=== PATIENT | male | born 1995 | race Caucasian/White ===

== ENCOUNTER 2017-03-28 21:25 | Emergency (ER) | payer SELFPAY ==
[~2017-03-28] VITALS: Ht 162.6 cm; Wt 65.9 kg
[2017-03-28 21:28] VITALS: Ht 162.6 cm; Wt 65.9 kg
--- NOTE | 2017-03-28 23:10 | RADRPT ---
PROCEDURE: CT Brain without contrast. CLINICAL INDICATION: Ethanol complication. Trauma. TECHNIQUE: A multiplanar CT of the brain was performed on a CT scanner utilizing axial imaging fro m the skull base through the vertex without . The CTDIvol is 43.58 mGy and the DLP is 720.23 mGycm . One or more of the following dose reduction techniques were utilized: Automated exposure control , adjustment of the mA and/or kV according to patient size, use of iterative reconstruction techniqu e. DICOM images are available. COMPARISON: None FINDINGS: No evidence of intracranial hemorrhage or abnormal extra-axial fluid collection. 5 mm left anterior parasagittal frontal lobe calcification compatible sequelae of chronic neurocysticercosis. The brain parenchyma is normal in attenuation and morphology with preservation of mccabe white differe ntiation Age appropriate size of the ventricles and subarachnoid spaces. The posterior fossa contents, brainstem, craniocervical junction, orbits, pituitary axis, paranasal sinuses, mastoid air cells, and calvarium are unremarkable. IMPRESSION: 1. No intracranial hemorrhage or acute intracranial abnormality . MRI may be considered for further evaluation as clinically warranted. 2. 5 mm left anterior parasagittal frontal lobe calcification compatible with sequelae of chronic neurocysticercosis. RPTAT:AAJJ Physician Magdalene Date Time Electronically viewed and signed by Physician Magdalene on 03/28/2017 23:09 VINCE/
[2017-03-29] MEDS ORDERED: BISM262O23 PO ×2 (02:26)
--- NOTE | 2017-03-29 04:16 | ERD ---
ER Documentation Chief Complaint Chief Complaint BIBA RA100,ETOH intoxication HPI 21-year-old male with acute alcohol intoxication brought in by rescue. Patient does drink alcohol. No evidence of trauma. Patient provides very little history given his alcoholic state ROS All systems reviewed and are negative except as per history of present illness. Medications Home Meds Reported Medications Bismuth Subsalicylate* (Pepto-Bismol*) 262 Mg/15 Ml Oral.susp, 15 ML PO Q6H Y for GASTROINTESTINAL UPSET, ML 03/29/17 Discontinued Reported Medications Bismuth Subsalicylate* (Pepto-Bismol*) 262 Mg/15 Ml Oral.susp, 30 ML PO, ML 03/29/17 Allergies Allergies: Coded Allergies: No Known Allergy (Unverified , 03/29/17) PMhx/Soc Medical and Surgical Hx: Unable to obtain Hx Alcohol Use: Yes Smoking Status: Unknown if ever smoked Physical Exam Vitals Vital Signs Date Time Temp Pulse Resp B/P Pulse Ox O2 Delivery O2 Flow Rate FiO2 03/28/17 21:28 97.6 103 18 133/77 96 Physical Exam Const: [] Head: Atraumatic Eyes: Normal Conjunctiva ENT: Normal External Ears, Nose and Mouth. Neck: Full range of motion..~ No meningismus. Resp: Clear to auscultation bilaterally Cardio: Regular rate and rhythm, no murmurs Abd: Soft, non tender, non distended. Normal bowel sounds Skin: No petechiae or rashes Back: No midline or flank tenderness Ext: No cyanosis, or edema Neur: Awake and alert Psych: Normal Mood and Affect Procedures/MDM Medical decision-makin-year-old male has been advised to stop drinking alcohol. No evidence of trauma. Well-appearing. Patient will be discharged home. Advised to stop drinking alcohol Departure Diagnosis: Primary Impression: Alcoholic intoxication Complication of substance-induced condition: uncomplicated Qualified Code: F10.920 - Alcoholic intoxication without complication Condition: Stable OUMARTONYAJAMEEFRANCES SWillian Mar 29, 2017 04:16
== END 2017-03-29 10:00 | disposition home or self-care (01) ==
LOC: EDBD 21:25 → E/R 21:25
DX: F10.920 Alcohol use, unspecified with intoxication, uncomplicated (principal); R51 Headache
CPT/HCPCS: 70450